=== PATIENT | male | born 1950 | race Caucasian/White ===

== ENCOUNTER → 2017-01-01 | Outpatient (REF) | payer MEDICARE, OTHER ==
[~2017-01-01] MED LIST: ALIG4CAP PO; ASPI81TA85 PO; FERR325T3 PO; FINA5TAB2 PO; GABA-282 PO; GABA-283 PO; LIPI80TA PO; LISI-542 PO; METF1000 PO; METF500T PO; NEUR800T PO; PRIL20CA9 PO; uroxatral PO
== END ==
LOC: M SMT 12:45
PROVIDERS: ATTEND Nurse Practitioner Women's Health
DX: Z01.818 Encounter for other preprocedural examination (principal); N20.0 Calculus of kidney
CPT/HCPCS: 81001; 87086; G0463

== ENCOUNTER → 2017-01-29 | Outpatient (CLI) | payer MEDICARE, OTHER ==
[~2017-01-29] MED LIST changes: +ALFU10TA2 PO; +CIPR500T3 PO; +DITR5TAB PO; +ISOVUE-300 61% 50ML VIAL (Q9967) As Ordered ONE; +LIDOCAINE 2% MDV 20 ML VIAL As Ordered ONE; +LR 1,000 ML IV SCH; -METF1000 PO; +METF10004 PO; -METF500T PO; +METF500T13 PO; +MIDAZOLAM INJ 2 MG/2 ML VIAL (J2250) As Ordered ONE; +MULT1TAB10 PO; +NORCO, ANEXSIA 5/325MG TABLET (HYDROcodone/ACETAMINOPHEN) As Ordered ONE; +NORCO, ANEXSIA 5/325MG TABLET (HYDROcodone/ACETAMINOPHEN) PO PRN; +ONDANSETRON 4MG/2ML VIAL (J2405) As Ordered ONE; +ONDANSETRON 4MG/2ML VIAL (J2405) IV PRN; +TYLE650T35 PO; +cefTRIAXone SOD 1 GM VIAL (J0696) As Ordered ONE; +fentaNYL 100 MCG/2 ML INJECTION (J3010) As Ordered ONE; +fentaNYL 100 MCG/2 ML INJECTION (J3010) IV PRN; +oxyBUTYnin 5 MG TAB PO PRN
[2017-01-29 14:20] VITALS: BP 165/77
--- NOTE | 2017-01-29 17:29 | REPKIM ---
CLINICAL HISTORY: Patient with a history of colon ca, bilateral kidney stones was found to have a staghorn calculus on the left as documented by the outside CT study. The referring urology service has asked a nephroureteral catheter ( stent) placement for preop percutaneous nephrolithotripsy urology procedure on the left. PROCEDURE PERFORMED: 1. Ultrasound left Kidney 2. Percutaneous antegrade Nephrostogram 3. Percutaneous Nephroureteral catheter (stent) placement INTERVENTIONALIST: Tahir Fagan MD CONSENT: The risks, benefits and alternatives to the procedure were explained to the patient and informed written consent was obtained. SEDATION: Sedation and analgesia was provided by the Anesthesiology Dept. MEDICATIONS: Rocephin 1gm IV, Benadryl, Local Lidocaine CONTRAST: 2 mL Isovue 300 EBL: 10 mL FLUORO TIME: 3.0 minutes DEVICE USED: 8.5F 45-cm pigtail; Nephroureteral catheter (stent) Lot#[id number] PROCEDURE/FINDINGS: The patient was brought to the interventional radiology suite and placed in the prone position, left flank prepped and draped in the usual sterile fashion. Time out procedure was performed. Ultrasound of the kidney showed a staghorn calculus in the renal pelvis. A smaller calyceal stone also noted in the mid to upper pole collecting system. Using ultrasound and fluoroscopy guidance, a 21- gauge Accustick needle was advanced into the targeted mid to upper pole posterior calyx containing stone, after infiltration of the skin and deep tissues with local anesthetic. Minimal amount of dilute contrast was injected and images were obtained. This showed free antegrade flow of contrast into the urinary bladder. Using a hydrophilic guidewire, the catheter-wire combination was advanced around the renal pelvis stone into the proximal ureter then into the urinary bladder. The wire was then exchanged for a stiff wire. An 8.5- Mexican 45-cm length nephroureteral catheter (stent) was introduced over the guidewire after serial dilation of its tract. The guidewire was withdrawn and the distal end of the loop curled in the bladder. The nephroureteral catheter was then flushed and capped. The patient tolerated the procedure well with no immediate complications. The patient was transferred to the recovery room. This procedure was performed using ultrasound and fluoroscopy. Dr. Fagan was present. IMPRESSION: 1. Staghorn calculus in the renal pelvis and a smaller calyceal stone in the mid to upper pole calyx. Nephrostogram demonstrates free antegrade flow of contrast into the urinary bladder. 2. Successful 8.5F nephroureteral catheter (stent) placement via the posterior mid to upper pole calyx containing stone with its tip positioned in the urinary bladder as discussed above. This NU access will be used for subsequent percutaneous nephrolithotripsy urology procedure. cc: MD Salud Roberts, HAI SHETH
== END ==
LOC: M IRPRO 09:25
PROVIDERS: ATTEND Urology
DX: N20.0 Calculus of kidney (principal)

== ENCOUNTER 2017-01-30 05:42 | Inpatient (IN) | payer MEDICARE, OTHER ==
[~2017-01-30] VITALS: Ht 167.6 cm; Wt 100.0 kg
[2017-01-30] VITALS (8 sets, daily range): BP systolic 126–187; BP diastolic 65–86
[~2017-01-30 05:42] MED LIST changes: -ALFU10TA2 PO; -CIPR500T3 PO; -ISOVUE-300 61% 50ML VIAL (Q9967) As Ordered ONE; -LIDOCAINE 2% MDV 20 ML VIAL As Ordered ONE; -LR 1,000 ML IV SCH; -MIDAZOLAM INJ 2 MG/2 ML VIAL (J2250) As Ordered ONE; -MULT1TAB10 PO; -NORCO, ANEXSIA 5/325MG TABLET (HYDROcodone/ACETAMINOPHEN) As Ordered ONE; -NORCO, ANEXSIA 5/325MG TABLET (HYDROcodone/ACETAMINOPHEN) PO PRN; -ONDANSETRON 4MG/2ML VIAL (J2405) As Ordered ONE; -ONDANSETRON 4MG/2ML VIAL (J2405) IV PRN; -TYLE650T35 PO; -cefTRIAXone SOD 1 GM VIAL (J0696) As Ordered ONE; -fentaNYL 100 MCG/2 ML INJECTION (J3010) As Ordered ONE; -fentaNYL 100 MCG/2 ML INJECTION (J3010) IV PRN; -oxyBUTYnin 5 MG TAB PO PRN
[2017-01-30] MEDS ORDERED: MIDAZOLAM INJ 2 MG/2 ML VIAL (J2250) As Ordered ONE (06:55)
[2017-01-30] MEDS ORDERED: fentaNYL 100 MCG/2 ML INJECTION (J3010) As Ordered ONE ×2 (06:55→08:08)
[2017-01-30] MEDS ORDERED: LR 1,000 ML IV SCH ×2 (07:15→09:30)
[2017-01-30] MEDS ORDERED: CONRAY-60 60% 50ML VIAL (Q9961) As Ordered ONE (07:17)
[2017-01-30] MEDS ORDERED: ROCURONIUM BROMIDE 50 MG/5 ML VIAL/SYRINGE As Ordered ONE (08:07)
[2017-01-30] MEDS ORDERED: ONDANSETRON 4MG/2ML VIAL (J2405) As Ordered ONE (08:07)
[2017-01-30] MEDS ORDERED: dexameTHASONE 4 MG/ML 1ML VIAL (J1100) As Ordered ONE (08:07)
[2017-01-30] MEDS ORDERED: PROPOFOL 200 MG/20 ML VIAL As Ordered ONE (08:07)
[2017-01-30] MEDS ORDERED: LIDOCAINE 2% INJ 100 MG/5 ML SDV (FOR ANES.) As Ordered ONE (08:07)
[2017-01-30] MEDS ORDERED: GLYCOPYRROLATE INJ 0.2 MG/ML 2 ML VIAL As Ordered ONE (08:27)
[2017-01-30] MEDS ORDERED: NEOSTIGMINE 1MG/ML 5 ML SYRINGE (J2710) As Ordered ONE (08:27)
[2017-01-30] MEDS ORDERED: LABETALOL HCL 100 MG/20 ML VIAL As Ordered ONE (08:46)
[2017-01-30] MEDS ORDERED: fentaNYL 100 MCG/2 ML INJECTION (J3010) IV PRN (09:30)
[2017-01-30] MEDS ORDERED: MORPHINE 2 MG/ML 1ML SYRINGE IV PRN (09:30)
[2017-01-30] MEDS ORDERED: METOCLOPRAMIDE INJ 10MG/2ML VIAL (J2765) IV PRN (09:30)
[2017-01-30] MEDS ORDERED: ONDANSETRON 4MG/2ML VIAL (J2405) IV PRN ×2 (09:30→10:00)
--- NOTE | 2017-01-30 09:40 | REP ---
C-ARM VIEW ABDOMEN: C-arm view of the abdomen performed. There appears to be a large bore nephrostomy catheter in the right renal pelvis. Ureteral stent is seen with the proximal end coiled in the lower pole collecting system. Contrast partially opacifies the pelvicaliceal system. There appears to be a filling defect at the ureteropelvic junction. 2 minutes 16 seconds fluoroscopy time utilized. Signed by Kory Harrison MD 01/30/2017 05:00 P
[2017-01-30] MEDS ORDERED: oxyCODONE 5MG TAB PO PRN (09:45)
[2017-01-30] MEDS ORDERED: MORPHINE 4 MG/ML 1ML SYRINGE IV PRN (09:45)
[2017-01-30] MEDS ORDERED: ALFU10TA2 PO (09:59)
[2017-01-30 10:00] LABS: CALCIUM LEVEL 8.6 MG/DL (8.8-10.2); CREATININE FOR GFR 1.45 MG/DL (0.70-1.30); GLOMERULAR FILTRATION RATE 51.5 (>49); POTASSIUM SERUM 3.8 MEQ/L (3.5-5.1)
[2017-01-30 10:11] LABS: MEAN CORPUSCULAR HGB CONC 33.7 g/dl (32.0-36.5); RED CELL DISTRIBUTION WIDTH 13.5 % (11.5-14.5); WHITE BLOOD COUNT 10.8 K/mm3 (4.0-10.0)
[2017-01-30] MEDS: KCL 20MEQ in NS 1000ML 1,000 ML IV SCH ×2 (11:28→21:17)
[2017-01-30] MEDS: PANTOPRAZOLE 40MG INJ (PROTONIX) (C9113) IV SCH (11:29)
[2017-01-30] MEDS: LISINOPRIL 5 MG TAB PO SCH (11:30)
[2017-01-30] MEDS ORDERED: MULT1TAB10 PO (12:44)
[2017-01-30] MEDS ORDERED: DEXTROSE 50% 50 ML SYRINGE IV PRN (13:15)
[2017-01-30] MEDS ORDERED: GLUCAGON FOR INJ 1 MG VIAL (J1610) SC PRN (13:15)
[2017-01-30] MEDS ORDERED: GLUCOSE 4 GM CHEW TABLET PO PRN (13:15)
[2017-01-30] MEDS: ACETAMINOPHEN 650MG ER TAB (TYLENOL ARTHRITIS) PO SCH ×2 (13:47→21:17)
[2017-01-30] MEDS: HumaLOG INSULIN (NovoLOG) PER UNIT SC SCH ×2 (13:48→17:55)
[2017-01-30] MEDS: FINASTERIDE 5 MG TAB PO SCH (13:48)
[2017-01-30] MEDS: CIPROFLOXACIN 500 MG TAB PO SCH (17:55)
[2017-01-30] MEDS ORDERED: ATORVASTATIN 20 MG TAB PO SCH (21:00)
[2017-01-30] MEDS ORDERED: HumaLOG INSULIN (NovoLOG) PER UNIT SC SCH (21:00)
[2017-01-30] MEDS ORDERED: GABAPENTIN 400 MG CAP PO SCH (21:00)
[2017-01-31 06:00] VITALS: BP 145/80
[2017-01-31] MEDS: KCL 20MEQ in NS 1000ML 1,000 ML IV SCH ×2 (06:04→13:10)
[2017-01-31] MEDS: ACETAMINOPHEN 650MG ER TAB (TYLENOL ARTHRITIS) PO SCH ×2 (06:04→13:10)
[2017-01-31] MEDS: CIPROFLOXACIN 500 MG TAB PO SCH (06:04)
[2017-01-31 06:53] LABS: MEAN CORPUSCULAR HEMOGLOBIN 29.3 pg (27.0-33.0); MEAN CORPUSCULAR HGB CONC 32.5 g/dl (32.0-36.5); RED CELL DISTRIBUTION WIDTH 13.5 % (11.5-14.5)
[2017-01-31 07:08] LABS: ANION GAP 7 MEQ/L (8-16); BLOOD UREA NITROGEN 16 MG/DL (7-18); CALCIUM LEVEL 8.5 MG/DL (8.8-10.2); CARBON DIOXIDE LEVEL 27 MEQ/L (21-32); CHLORIDE LEVEL 106 MEQ/L (98-107); CREATININE FOR GFR 1.25 MG/DL (0.70-1.30); GLOMERULAR FILTRATION RATE > 60.0 (>49); GLUCOSE, FASTING 144 MG/DL (80-110); POTASSIUM SERUM 4.1 MEQ/L (3.5-5.1); SODIUM LEVEL 140 MEQ/L (136-145)
[2017-01-31] MEDS: HumaLOG INSULIN (NovoLOG) PER UNIT SC SCH ×2 (07:30→12:00)
[2017-01-31] MEDS ORDERED: metFORMIN (GLUCOPHAGE) 1000 MG TABLET PO SCH ×2 (08:00)
[2017-01-31 08:14] VITALS: BP 145/80
[2017-01-31] MEDS: LISINOPRIL 5 MG TAB PO SCH (08:14)
[2017-01-31] MEDS: FINASTERIDE 5 MG TAB PO SCH (08:14)
[2017-01-31] MEDS ORDERED: GABAPENTIN 400 MG CAP PO SCH (09:00)
[2017-01-31] MEDS ORDERED: GABAPENTIN 100 MG CAP PO SCH (09:00)
[2017-01-31] MEDS ORDERED: GABAPENTIN 300 MG CAP PO SCH (09:00)
--- NOTE | 2017-01-31 09:16 | REP ---
CT abdomen pelvis without IV or bowel contrast: Comparison is the most recent prior CT dated seven 10/31/2011. On the current study there is a left ureteral stent with the proximal and distal pigtails in satisfactory locations. In addition there is a left percutaneous nephrostomy. No left renal calculi are identified. There is no left hydronephrosis. There are too small nonobstructive right renal calculi approximate 3 mm in diameter each. There is no right hydronephrosis. There is no right ureteral calculus. There is a Walls catheter in the urinary bladder. No bladder calculi are identified. There is no perinephric hematoma or mass on the left on the right. There is mild bilateral perinephric stranding, not unusual for patient age. In the absence of IV contrast the study is insensitive for renal masses. No renal cysts are identified. The visualized lower lung anderson are unremarkable. The unenhanced hepatic parenchyma is less dense than the spleen compatible with hepato of hepato steatosis. The adrenals are unremarkable. The abdominal aorta is unremarkable. There is occasional calcified atheroma. There is no bowel distension. Mesentery is unremarkable. There is a circumferential surgical staple ring in the ascending colon, unchanged from the prior study. The patient indicates he has had partial colon resection procedure for colon carcinoma. There is no retroperitoneal or mesenteric adenopathy. No ascites. There is a large air-fluid level in the urinary bladder. This is likely secondary to catheterization. The bladder is incompletely distended. No pelvic adenopathy or ascites. Prostatic of this are incidentally noted. Impression: There are nonobstructive right renal calculi. There are no left renal calculi. There is a left ureteral stent and a left percutaneous nephrostomy as described in the body of the report. There is no hydronephrosis on the left on the right. The bladder is nondistended. There is an air-fluid level in the urinary bladder, likely from catheterization. Prostatoliths are incidentally noted. There is a circumferential surgical staple line in the ascending colon likely from partial colon resection for colon carcinoma. This is unchanged from the prior study. No adenopathy or ascites. Hepato steatosis. Signed by Kory Guerrero MD 01/31/2017 09:07 A
[2017-01-31 10:00] VITALS: BP 162/80
[2017-01-31] MEDS: PANTOPRAZOLE 40MG INJ (PROTONIX) (C9113) IV SCH (13:09)
[2017-01-31 14:00] VITALS: BP 139/68
[2017-01-31] MEDS ORDERED: TYLE650T35 PO (16:10)
[2017-01-31] MEDS ORDERED: CIPR500T3 PO (16:10)
[2017-01-31] MEDS ORDERED: metFORMIN (GLUCOPHAGE) 500 MG TAB PO SCH (21:00)
--- NOTE | 2017-02-01 18:59 | DSES ---
DATE OF ADMISSION: 01/30/2017 DATE OF DISCHARGE: 01/31/2017 DATE OF SURGERY: 01/30/2017 PREOPERATIVE DIAGNOSIS: Left renal stone. POSTOPERATIVE DIAGNOSIS: Left renal stone. SURGERY PERFORMED: Left percutaneous nephrolithotripsy plus antegrade double J stent placement. ADMITTING SURGEON: Dominic Andrews MD DISCHARGE SURGEON: Dominic Andrews MD COMPLICATIONS: None. HISTORY OF THE PRESENT ILLNESS: This is a 66-year-old male patient with a 3.5 cm left renal stone and a 2 mm stone in the lower pole of the kidney. The patient has consented for a left percutaneous nephrolithotripsy, plus antegrade double J stent placement and this procedure was performed on 01/30/2017. For this reason, he was admitted after the procedure. HOSPITALIZATION COURSE: The patient did very well. By postoperative day #1, he was started on a regular diet, ambulating very well, voiding very well. We did a CT scan of the abdomen and pelvis which showed he was stone free. He had a nephrostomy tube and double J stent in good position. For this reason, we discontinued the Walsl catheter, he voided very well. We saline locked him. He ate and passed gas, ambulated very well. Pain was controlled with oral pain medication. For this reason, we discontinued the nephrostomy tube and placed a urostomy bag in the left side of the incision where the nephrostomy tube was. We are sending him home today after request and we have agreed upon this. He will be going home with the following medications: Tylenol 650 mg one tablet by mouth extended release every 8 hours as needed for pain, and he will have ciprofloxacin 500 mg one tablet by mouth twice a day for 10 days. He will followup at [facility] [place] in 1-2 weeks for removal of the double J stent.
--- NOTE | 2017-02-02 12:26 | RO ---
DATE OF PROCEDURE: 01/30/2017 PREOPERATIVE DIAGNOSIS: Left renal stone. POSTOPERATIVE DIAGNOSIS: Left renal stone. SURGERY PERFORMED: Left percutaneous nephrolithotripsy plus antegrade double J stent placement #6 Chinese [place]. SURGEON: Dr. Dominic Andrews BATTERY CHECKER: None. ANESTHESIA: General. FINDINGS: 3.5 cm left renal stone. COMPLICATIONS: None. ESTIMATED BLOOD LOSS: N/A. HISTORY OF PRESENT ILLNESS: 66-year-old male patient that has a left renal stone of about 3.5 cm and a 2 mm stone in left lower pole. Patient had a left nephroureteral stent placed by interventional radiology about 24-48 hours ago. Patient is here today, consented for left percutaneous nephrolithotripsy plus antegrade double J stent placement #6-Chinese [place]. PROCEDURE DESCRIPTION: In a patient under general anesthesia in prone position, after prepping and draping the area of concern, which included the left flank, we cut the nephroureteral stent and passed a guidewire down to the bladder and took the nephroureteral stent out. We cut the skin for about 2 cm in length and then passed a double-lumen catheter up to the proximal ureter and passed another Super Stiff guidewire down to the bladder. We then proceeded to actually, through one of the Super Stiffs, pass a balloon dilator to dilate the nephroureteral stent tract and create our nephrostomy tract. Once it was dilated, we passed an Amplatz sheath into the kidney and took out the balloon dilator. We then proceeded to pass a nephroscope under videoendoscopic guidance. We identified the stone. With a ShockPulse Olympus nephrolithotriptor, ultrasonic nephrolithotripsy machine, we actually broke the stone and sucked the stone pieces out completely. With a Perc NCircle, we grabbed the largest pieces out of the body of the patient and sent it for permanent biochemical analysis. We then proceeded to take the nephroscope out and pass a double J stent in an antegrade fashion. Once it was in good position, we took the guidewire out. We could see the curl in the kidney and curl in the bladder. We then proceeded to actually take out the Amplatz sheath and pass a Councill tip catheter, #18-Chinese in diameter, to the left renal pelvis and then took the guidewire out and suture secured the nephrostomy tube to the skin with a #0 silk stitch times two. We placed ABD pads and Tegaderm on top of the nephrostomy tube. Nephrostomy tube is going out to gravity. Patient has a Walls catheter also to gravity and a left double J stent. The patient was stone clear by fluoroscopy. PLAN: The patient will pass to recovery, then to the floor. Tomorrow, he will have a CT scan of the abdomen and pelvis, noncontrast. If there are no stones, we will take the Walls catheter from the bladder and the nephrostomy tube from the left nephrostomy tract. He will stay with a left double J stent and send home for followup at [facility] in 1-2 weeks for removal of left double J stent. There were no complications. The stones were sent for biochemical analysis.
== END 2017-01-31 18:30 | disposition home or self-care (01) | DRG 661 ==
LOC: M OR 05:42 → M MS5PR 10:45
PROVIDERS: ADMIT Urology; ATTEND Urology
PROC: 0T773ZZ Dilation of Left Ureter, Percutaneous Approach (ICD-10-PCS; 2017-01-29)
PROC: 0TP93DZ Removal of Intraluminal Device from Ureter, Percutaneous Approach (ICD-10-PCS; 2017-01-30)
PROC: 0T773DZ Dilation of Left Ureter with Intraluminal Device, Percutaneous Approach (ICD-10-PCS; 2017-01-30)
PROC: 0T9430Z Drainage of Left Kidney Pelvis with Drainage Device, Percutaneous Approach (ICD-10-PCS; 2017-01-30)
PROC: 0TC43ZZ Extirpation of Matter from Left Kidney Pelvis, Percutaneous Approach (ICD-10-PCS; principal; 2017-01-30 07:30)
DX: N20.0 Calculus of kidney (principal); Z85.038 Personal history of other malignant neoplasm of large intestine; R91.1 Solitary pulmonary nodule; Z87.442 Personal history of urinary calculi; Z79.82 Long term (current) use of aspirin; Z79.84 Long term (current) use of oral hypoglycemic drugs; Z79.899 Other long term (current) drug therapy; N40.0 Benign prostatic hyperplasia without lower urinary tract symptoms; E11.9 Type 2 diabetes mellitus without complications; I10 Essential (primary) hypertension; E78.5 Hyperlipidemia, unspecified; K21.9 Gastro-esophageal reflux disease without esophagitis; G62.9 Polyneuropathy, unspecified; Z82.49 Family history of ischemic heart disease and other diseases of the circulatory system; Z82.0 Family history of epilepsy and other diseases of the nervous system; Z82.69 Family history of other diseases of the musculoskeletal system and connective tissue; Z83.52 Family history of ear disorders

== ENCOUNTER → 2017-05-10 | Outpatient (CLI) | payer MEDICARE, OTHER ==
[~2017-05-10] MED LIST changes: +ALFU10TA2 PO; +CIPR500T3 PO; +MULT1TAB10 PO; +TYLE650T35 PO
--- NOTE | 2017-05-10 16:24 | REP ---
CT of the chest without IV contrast: Comparison is 08/17/2009. This is the most recent prior study. No on the prior study there was a 5 mm nodule in the posterior basilar segment of the right lower lobe. On the study today this nodule measures 7 mm. This increase in size of 2 mm spanning approximately seven and half years is insignificant. This is most likely a stable granuloma. There are no other nodules. There are no masses. There are no infiltrates. There are no effusions. There is no mediastinal lymph node enlargement. There is no axillary lymph node enlargement. The study is insensitive for hilar lymph node enlargement in the absence of IV contrast. The thoracic aorta is unremarkable. Cardiac size is normal. There is calcified atheroma in the coronary arteries. There is no pericardial effusion. The visualized upper abdominal contents are unremarkable. There is no adrenal mass. Impression: There is a 7 mm nodule in the posterior basilar segment right lower lobe. This measured 5 mm 08/17/2009. This 2 mm size increase spanning seven and half years is insignificant. This is likely a granuloma. Otherwise, negative CT study of the chest. Signed by Kory Guerrero MD 05/10/2017 04:16 P
== END ==
LOC: M RAD 12:52
PROVIDERS: ATTEND Internal Medicine Pulmonary Disease
DX: R91.1 Solitary pulmonary nodule (principal)